=== PATIENT | female | born 1930 | race Caucasian/White ===

== ENCOUNTER → 2016-07-12 | Outpatient (CLI) | payer OTHER ==
[~2016-07-12] MED LIST: ADULT LOW DOSE81 MG PO; AMLODIPINE BESY10 MG PO; APAP500 PO; ATENOLOL 50MG T50 M1 PO; CHLORTHALID PO; ESTROVEN JOINT1 EACH PO; FENTANYL PA12 MCG/HR TP; FISH OIL 1,001000 MG PO; FISHOIL PO; HYDROCHLOROTHIA25 M1 PO; HYDROCODON-ACE1 EAC7 PO; HYDROCODONE-AP1 EAC6 PO; LASIX 20 MG TAB20 MG PO; LISINOPRIL40 MG PO; MELOXICAM7.5 MG PO; NABUMETONE 500500 M1 PO; NEURONTIN 300300 M1 PO; NEURONTIN 300M300 M2 PO; NORCO 5-325 TA1 EACH PO; TRAMADOL 50 MG50 MG PO; TRIAMTERENE-HC1 EAC1 PO; [UNRECOGNIZED DRUG - OTHER] PO
== END ==
LOC: ULTRA 02:06
DX: R22.9 Localized swelling, mass and lump, unspecified (principal)

== ENCOUNTER → 2019-04-03 | Outpatient (CLI) | payer OTHER ==
[~2019-04-03] MED LIST changes: +ASPIR-TRIN325 MG PO; +ATORVASTATIN CA40 MG PO; +COUMADIN 5 MG TA5 M1 PO; +PROTONIX40 M1 PO; +VITAMIN D32000 UNI1 PO; +ZYRTEC10 M4 PO
== END | disposition home or self-care (01) ==
LOC: SJCVC 15:55
DX: Z51.81 Encounter for therapeutic drug level monitoring (principal); I65.23 Occlusion and stenosis of bilateral carotid arteries; I73.9 Peripheral vascular disease, unspecified; I48.20 Chronic atrial fibrillation, unspecified; E78.00 Pure hypercholesterolemia, unspecified; Z79.01 Long term (current) use of anticoagulants

== ENCOUNTER → 2019-09-10 | Outpatient (CLI) | payer OTHER | LOC: CAT 07:34 | PROVIDERS: ATTEND Family Medicine | DX: J43.8 Other emphysema (principal); R91.8 Other nonspecific abnormal finding of lung field; R63.4 Abnormal weight loss; J84.10 Pulmonary fibrosis, unspecified; J98.11 Atelectasis; I25.10 Atherosclerotic heart disease of native coronary artery without angina pectoris ==

== ENCOUNTER 2019-10-28 19:18 | Emergency (ER) | payer OTHER ==
[~2019-10-28] VITALS: Ht 157.5 cm; Wt 54.4 kg
[2019-10-28] MEDS ORDERED: ACETAMINOPHEN PO (19:29)
[2019-10-28] MEDS ORDERED: TESSALON PERLE100 MG PO (19:30)
[2019-10-28] MEDS ORDERED: KLOR-CON 10 ER10 MEQ PO (19:30)
[2019-10-28] MEDS ORDERED: DECADRON4 MG PO (19:30)
[2019-10-28] MEDS ORDERED: XARELTO15 MG PO (19:31)
[2019-10-28] MEDS ORDERED: MIRTAZAPINE7.5 MG PO (19:32)
[2019-10-28] MEDS ORDERED: BENICAR40 MG PO (19:33)
[2019-10-28] MEDS ORDERED: STOOL SOFTENER100 M1 PO (19:33)
[2019-10-28] MEDS ORDERED: ULTRAM 50MG TAB50 MG PO (19:33)
[2019-10-28 21:08] LABS: HEMATOCRIT 48.2 % (37.0-47.0); HEMOGLOBIN 16.2 gm/dL (12.0-15.0); MCH 30.6 pg (26.0-34.0); MCHC 33.7 g/dL (28.0-37.0); MCV 90.9 fL (80.0-100.0); PLATELET COUNT 401 thou/uL (150-400); RDW 16.9 % (10.5-14.5); WBC 15.8 thou/uL (4.0-11.0)
[2019-10-28 21:11] LABS: URINE BILIRUBIN NEGATIVE (Negative); URINE BLOOD TRACE (Negative); URINE CLARITY CLEAR; URINE COLOR YELLOW; URINE GLUCOSE-RANDOM* 3+ (Negative); URINE KETONES NEGATIVE (Negative); URINE LEUKOCYTES-REFLEX NEGATIVE (Negative); URINE NITRITE-REFLEX NEGATIVE (Negative); URINE PROTEIN (DIPSTICK) 1+ (Negative); URINE UROBILINOGEN 0.2 E.U./dl (0.2-1.0)
[2019-10-28 21:25] LABS: BACTERIA-REFLEX 1-9 Few /HPF (None Seen); CASTS None Seen /LPF (None Seen); CRYSTALS None Seen /LPF (None Seen); SQUAMOUS 0-3 Few /LPF (0-3); URINE RBC 0-2 Rare /HPF (0-2)
[2019-10-28 21:26] LABS: URINE WBC-REFLEX None Seen /HPF (0-5)
[2019-10-28 21:47] LABS: LARGE PLATELETS FEW
[2019-10-28 21:48] LABS: ANISOCYTOSIS 1+
[2019-10-28 21:49] LABS: POLYCHROMASIA OCCASIONAL
[2019-10-28 22:25] LABS: ALBUMIN 3.2 g/dL (3.4-5.0); CALCIUM 9.8 mg/dL (8.5-10.1); CREATININE 1.5 mg/dL (0.6-1.0); POTASSIUM 5.3 mmol/L (3.5-5.1); TOTAL BILIRUBIN 0.7 mg/dL (0.2-1.0); TOTAL PROTEIN 7.8 g/dL (6.4-8.2)
[2019-10-29 02:28] LABS: CALCIUM 9.1 mg/dL (8.5-10.1); CREATININE 1.1 mg/dL (0.6-1.0)
[2019-10-29] MEDS ORDERED: LANTUS SUBQ (02:58)
[2019-10-29 03:05] VITALS: BP 167/96
--- NOTE | 2019-10-29 08:32 | EKG ---
[facility] [place] [address] ELECTROCARDIOGRAM REPORT Name: SELWYN DALAL Tracy Room #: DEP [facility]#: [id number] Admission: 10/28/19 Attend Phys: Discharge: 10/29/19 Date of : 30 Report #: [id number] THIS REPORT FOR: cc: Luis Cruz James A. DO Lundgren, Craig H. MD [facility] ~ THIS REPORT FOR: //name// [facility] ED Test Date: 2019-10-28 Test Time: 19:54:19 Pat Name: SELWYN DALAL Department: Room: Gender: F [employer]: JERO : 1930 Requested By: Robe Tyler Order Number: [id number] MD: Darion Lamar Measurements Intervals [place] Rate: 98 P: WI: QRS: 80 QRSD: 153 T: 27 QT: 360 QTc: 460 Interpretive Statements Atrial fibrillation Poor R wave progression Baseline wander in lead(s) V6 Compared to ECG 09/15/2016 18:39:00 Heart rate has slowed Nonspecific change in the ST segments Electronically Signed On 10-29-2019 8:32:42 CDT by Darion Lamar [email or web address] <ELECTRONICALLY SIGNED> By: Darion Lamar MD, [facility] 10/29/19831 53 53 Darion Lamar MD, [facility] /EPI
== END 2019-10-29 03:05 ==
LOC: ER 19:18
PROVIDERS: Emergency Medicine
DX: E87.1 Hypo-osmolality and hyponatremia (principal); R73.9 Hyperglycemia, unspecified; I10 Essential (primary) hypertension; E78.00 Pure hypercholesterolemia, unspecified; Z88.0 Allergy status to penicillin; Z79.899 Other long term (current) drug therapy; Z79.01 Long term (current) use of anticoagulants; Z85.118 Personal history of other malignant neoplasm of bronchus and lung